=== PATIENT | female | born 1970 | race African-American/Black ===

== ENCOUNTER 2017-11-08 18:23 | Emergency (ER) | payer BC, MEDICAID | END 2017-11-08 19:00 | disposition home or self-care (01) | LOC: E/R 18:23 | DX: H10.9 Unspecified conjunctivitis (principal); J20.9 Acute bronchitis, unspecified; J45.909 Unspecified asthma, uncomplicated | CPT/HCPCS: 99284 ==

== ENCOUNTER 2017-11-24 01:37 | Emergency (ER) | payer BC ==
[2017-11-24 04:28] LABS: ADD MAN DIFF? NO
[2017-11-24 04:30] LABS: BASOPHILS % 0.4 % (0.0-2.0); EOSINOPHILS # 0.5 10^3/ul (0.0-0.5); HEMATOCRIT 41.4 % (37.0-47.0); HEMOGLOBIN 13.8 g/dl (12.0-16.0); LYMPHOCYTES # 1.6 10^3/ul (0.8-2.9); LYMPHOCYTES % 32.3 % (15.0-51.0); MEAN CORPUSCULAR HEMOGLOBIN 31.2 pg (29.0-33.0); MEAN CORPUSCULAR HGB CONC 33.3 g/dl (32.0-37.0); MEAN CORPUSCULAR VOLUME 93.5 fl (82.0-101.0); MEAN PLATELET VOLUME 8.5 fl (7.4-10.4); MONOCYTE # 0.5 10^3/ul (0.3-0.9); MONOCYTES % 10.4 % (0.0-11.0); NEUTROPHIL # 2.3 10^3/ul (1.6-7.5); NEUTROPHILS % 46.7 % (39.0-77.0); PLATELET COUNT 333 10^3/UL (140-415); RED BLOOD COUNT 4.43 10^6/ul (4.20-5.40); RED CELL DISTRIBUTION WIDTH 12.4 % (11.5-14.5)
[2017-11-24 04:50] LABS: ALANINE AMINOTRANSFERASE 42 IU/L (13-69); ALBUMIN/GLOBULIN RATIO 1.11; ALKALINE PHOSPHATASE 117 IU/L (42-121); ANION GAP 17 (8-16); ASPARTATE AMINO TRANSFERASE 44 IU/L (15-46); BILIRUBIN,INDIRECT 0.2 mg/dl (0-1.1); BILIRUBIN,TOTAL 0.2 mg/dl (0.2-1.3); BLOOD UREA NITROGEN 13 mg/dl (7-20); CALCIUM 9.8 mg/dl (8.4-10.2); CARBON DIOXIDE 28 mmol/L (21-31); CHLORIDE 106 mmol/L (97-110); CREATININE 0.94 mg/dl (0.44-1.00); GLUCOSE 99 mg/dl (70-220); POTASSIUM 3.8 mmol/L (3.5-5.1); SODIUM 147 mmol/L (135-144); TOTAL PROTEIN 7.6 g/dl (6.1-8.1)
== END 2017-11-24 06:08 | disposition left against medical advice (07) ==
LOC: FTE 01:37
DX: J20.9 Acute bronchitis, unspecified (principal)
CPT/HCPCS: 80053; 85025; 99284

== ENCOUNTER 2017-11-30 01:07 | Emergency (ER) | payer BC ==
[2017-11-30] MEDS: DIPHENHYDRAMINE 50 MG INJ IV (01:47)
[2017-11-30] MEDS: SOD CHLORIDE 0.9% 1,000 ML IV (01:48)
[2017-11-30] MEDS: METOCLOPRAMIDE 10 MG INJ IV (01:48)
== END 2017-11-30 03:00 | disposition home or self-care (01) ==
LOC: FTE 01:07
DX: G43.909 Migraine, unspecified, not intractable, without status migrainosus (principal)
CPT/HCPCS: 96374; 96375; 99284-25

== ENCOUNTER 2017-12-01 03:54 | Emergency (ER) | payer SELFPAY, BC | END 2017-12-01 06:30 | disposition left against medical advice (07) | LOC: FTE 03:54 | DX: Z53.21 Procedure and treatment not carried out due to patient leaving prior to being seen by health care provider (principal) ==

== ENCOUNTER 2017-12-02 16:51 | Emergency (ER) | payer BC ==
[2017-12-02] MEDS: SOD CHLORIDE 0.9% 500 ML IV (19:33)
[2017-12-02 19:36] LABS: WHITE BLOOD COUNT 3.7 10^3/ul (4.8-10.8)
[2017-12-02 19:36] LABS: BASOPHILS % 0.3 % (0.0-2.0); HEMATOCRIT 34.4 % (37.0-47.0); HEMOGLOBIN 11.8 g/dl (12.0-16.0); LYMPHOCYTES # 1.1 10^3/ul (0.8-2.9); LYMPHOCYTES % 29.6 % (15.0-51.0); MEAN CORPUSCULAR HEMOGLOBIN 32.2 pg (29.0-33.0); MEAN CORPUSCULAR HGB CONC 34.3 g/dl (32.0-37.0); MEAN PLATELET VOLUME 8.3 fl (7.4-10.4); MONOCYTE # 0.4 10^3/ul (0.3-0.9); MONOCYTES % 11.6 % (0.0-11.0); NEUTROPHIL # 2.2 10^3/ul (1.6-7.5); NEUTROPHILS % 58.2 % (39.0-77.0); PLATELET COUNT 251 10^3/UL (140-415); RED BLOOD COUNT 3.66 10^6/ul (4.20-5.40); RED CELL DISTRIBUTION WIDTH 12.6 % (11.5-14.5)
[2017-12-02 19:37] LABS: ADD MAN DIFF? NO
[2017-12-02 20:00] LABS: ANION GAP 15 (8-16); BLOOD UREA NITROGEN 23 mg/dl (7-20); CALCIUM 9.3 mg/dl (8.4-10.2); CARBON DIOXIDE 27 mmol/L (21-31); CHLORIDE 107 mmol/L (97-110); CREATININE 0.92 mg/dl (0.44-1.00); GLUCOSE 116 mg/dl (70-220); POTASSIUM 3.5 mmol/L (3.5-5.1); SODIUM 145 mmol/L (135-144)
[2017-12-02 20:12] LABS: TROPONIN-I < 0.012 ng/ml (0.00-0.12)
== END 2017-12-02 20:50 | disposition home or self-care (01) ==
LOC: FTE 16:51
DX: R42 Dizziness and giddiness (principal); F22 Delusional disorders
CPT/HCPCS: 80048; 84484; 85025; 93005; 99284-25

== ENCOUNTER 2017-12-03 00:32 | Emergency (ER) | payer BC | END 2017-12-03 07:08 | disposition home or self-care (01) | LOC: E/R 00:32 | DX: Z76.5 Malingerer [conscious simulation] (principal) | CPT/HCPCS: 99282 ==

== ENCOUNTER 2017-12-13 01:28 | Emergency (ER) | payer BC ==
[2017-12-13] MEDS ORDERED: NALOXONE (0.4 MG/ML) INJ IM (03:30)
[2017-12-13 04:01] LABS: AMPHETAMINE/METHAMPHETAMINE Negative (NEGATIVE); BARBITURATES Negative (NEGATIVE); BENZODIAZEPINES Negative (NEGATIVE); CANNABINOIDS Negative (NEGATIVE); COCAINE Negative (NEGATIVE); OPIATES Negative (NEGATIVE)
== END 2017-12-13 03:10 | disposition left against medical advice (07) ==
LOC: E/R 01:28
DX: F99 Mental disorder, not otherwise specified (principal)
CPT/HCPCS: 80307; 99283

== ENCOUNTER 2017-12-15 03:53 | Emergency (ER) | payer BC ==
[2017-12-15] MEDS: ONDANSETRON (ODT) 4 MG TAB ODT (06:30)
== END 2017-12-15 07:54 | disposition home or self-care (01) ==
LOC: E/R 03:53
DX: R11.0 Nausea (principal)
CPT/HCPCS: 93005; 99283

== ENCOUNTER 2017-12-24 02:59 | Emergency (ER) | payer BC | END 2017-12-24 03:50 | disposition home or self-care (01) | LOC: E/R 03:50 → FTE 02:59 → E/R 03:50 | DX: R51 Headache (principal) | CPT/HCPCS: 99282 ==

== ENCOUNTER 2017-12-28 23:51 | Emergency (ER) | payer SELFPAY, BC | END 2017-12-29 05:00 | disposition left against medical advice (07) | LOC: E/R 23:51 | DX: Z53.21 Procedure and treatment not carried out due to patient leaving prior to being seen by health care provider (principal) ==

== ENCOUNTER 2018-01-02 23:54 | Emergency (ER) | payer SELFPAY | END 2018-01-03 03:05 | disposition home or self-care (01) | LOC: E/R 23:54 | DX: J06.9 Acute upper respiratory infection, unspecified (principal); R40.2142 Coma scale, eyes open, spontaneous, at arrival to emergency department; R40.2252 Coma scale, best verbal response, oriented, at arrival to emergency department; R40.2362 Coma scale, best motor response, obeys commands, at arrival to emergency department; J45.909 Unspecified asthma, uncomplicated | CPT/HCPCS: 71045; 99283-25 ==

== ENCOUNTER 2018-01-03 22:28 | Emergency (ER) | payer BC | END 2018-01-03 22:59 | disposition home or self-care (01) | LOC: E/R 22:28 | DX: R51 Headache (principal); R40.2142 Coma scale, eyes open, spontaneous, at arrival to emergency department; R40.2252 Coma scale, best verbal response, oriented, at arrival to emergency department; R40.2362 Coma scale, best motor response, obeys commands, at arrival to emergency department | CPT/HCPCS: 99283 ==

== ENCOUNTER 2018-01-13 00:15 | Emergency (ER) | payer BC | END 2018-01-13 00:51 | disposition home or self-care (01) | LOC: E/R 00:15 | DX: R10.9 Unspecified abdominal pain (principal); R40.2252 Coma scale, best verbal response, oriented, at arrival to emergency department; R40.2142 Coma scale, eyes open, spontaneous, at arrival to emergency department; R40.2362 Coma scale, best motor response, obeys commands, at arrival to emergency department | CPT/HCPCS: 99282 ==

== ENCOUNTER 2018-03-30 00:41 | Emergency (ER) | payer BC | END 2018-03-30 03:14 | disposition home or self-care (01) | LOC: FTE 00:41 | DX: Z00.00 Encounter for general adult medical examination without abnormal findings (principal); J45.909 Unspecified asthma, uncomplicated | CPT/HCPCS: 99282 ==

== ENCOUNTER 2018-03-31 02:36 | Emergency (ER) | payer BC ==
[2018-03-31] MEDS: HYDROCODONE/APAP (10/325) TAB PO (07:08)
== END 2018-03-31 06:49 | disposition home or self-care (01) ==
LOC: E/R 02:36
DX: M72.2 Plantar fascial fibromatosis (principal); R40.2252 Coma scale, best verbal response, oriented, at arrival to emergency department; J45.909 Unspecified asthma, uncomplicated
CPT/HCPCS: 99283

== ENCOUNTER 2018-04-01 03:22 | Emergency (ER) | payer BC ==
[2018-04-01] MEDS: HYDROCODONE/APAP (10/325) TAB PO (04:13)
== END 2018-04-01 04:19 | disposition home or self-care (01) ==
LOC: E/R 03:22
DX: H10.31 Unspecified acute conjunctivitis, right eye (principal); L60.0 Ingrowing nail; J45.909 Unspecified asthma, uncomplicated; R40.2142 Coma scale, eyes open, spontaneous, at arrival to emergency department; R40.2362 Coma scale, best motor response, obeys commands, at arrival to emergency department; R40.2252 Coma scale, best verbal response, oriented, at arrival to emergency department
CPT/HCPCS: 99284

== ENCOUNTER 2018-04-09 00:36 | Emergency (ER) | payer SELFPAY, BC | END 2018-04-09 01:28 | disposition left against medical advice (07) | LOC: E/R 00:36 | DX: Z53.21 Procedure and treatment not carried out due to patient leaving prior to being seen by health care provider (principal) ==

== ENCOUNTER 2018-04-11 10:30 | Emergency (ER) | payer BC | END 2018-04-11 12:39 | disposition home or self-care (01) | LOC: E/R 10:30 | DX: B86 Scabies (principal); L29.9 Pruritus, unspecified; J45.909 Unspecified asthma, uncomplicated; R40.2142 Coma scale, eyes open, spontaneous, at arrival to emergency department; R40.2362 Coma scale, best motor response, obeys commands, at arrival to emergency department | CPT/HCPCS: 99283 ==

== ENCOUNTER 2018-04-11 15:08 | Emergency (ER) | payer BC | END 2018-04-11 15:53 | disposition home or self-care (01) | LOC: E/R 15:08 | DX: B86 Scabies (principal); J45.909 Unspecified asthma, uncomplicated; Z76.0 Encounter for issue of repeat prescription | CPT/HCPCS: 99281 ==

== ENCOUNTER 2018-04-11 20:12 | Emergency (ER) | payer BC | END 2018-04-11 20:40 | disposition home or self-care (01) | LOC: E/R 20:12 | DX: M54.9 Dorsalgia, unspecified (principal); J45.909 Unspecified asthma, uncomplicated | CPT/HCPCS: 99283 ==

== ENCOUNTER 2018-04-16 00:11 | Emergency (ER) | payer BC ==
[2018-04-16] MEDS: HYDROCODONE/APAP (10/325) TAB PO (03:07)
== END 2018-04-16 03:10 | disposition home or self-care (01) ==
LOC: E/R 00:11
DX: R51 Headache (principal); R10.9 Unspecified abdominal pain; J45.909 Unspecified asthma, uncomplicated
CPT/HCPCS: 99283

== ENCOUNTER 2018-04-17 21:08 | Emergency (ER) | payer BC ==
[2018-04-17 21:54] LABS: ADD UMIC YES; UR ASCORBIC ACID NEGATIVE (NEGATIVE); UR BILIRUBIN (Dip) NEGATIVE (NEGATIVE); UR BLOOD (Dip) 2+ mg/dL (NEGATIVE); UR CLARITY CLEAR (CLEAR); UR COLOR STRAW (YELLOW); UR GLUCOSE (Dip) NEGATIVE (NEGATIVE); UR KETONES (Dip) NEGATIVE (NEGATIVE); UR LEUKOCYTE ESTERASE (Dip) TRACE Leu/ul (NEGATIVE); UR NITRITE (Dip) NEGATIVE (NEGATIVE); UR RBC 15 /HPF (0-5); UR SPECIFIC GRAVITY (Dip) 1.005 (1.003-1.030); UR TOTAL PROTEIN (Dip) NEGATIVE (NEGATIVE); UR UROBILINOGEN (Dip) NEGATIVE (NEGATIVE); UR WBC 3 /HPF (0-5)
[2018-04-17 22:09] LABS: ADD MAN DIFF? NO
[2018-04-17 22:11] LABS: BASOPHILS % 0.4 % (0.0-2.0); EOSINOPHILS # 0.1 10^3/ul (0.0-0.5); EOSINOPHILS % 2.7 % (0.0-7.0); HEMATOCRIT 35.4 % (37.0-47.0); HEMOGLOBIN 11.9 g/dl (12.0-16.0); LYMPHOCYTES # 1.4 10^3/ul (0.8-2.9); LYMPHOCYTES % 31.8 % (15.0-51.0); MEAN CORPUSCULAR HEMOGLOBIN 31.3 pg (29.0-33.0); MEAN CORPUSCULAR HGB CONC 33.6 g/dl (32.0-37.0); MEAN CORPUSCULAR VOLUME 93.2 fl (82.0-101.0); MEAN PLATELET VOLUME 8.8 fl (7.4-10.4); MONOCYTE # 0.4 10^3/ul (0.3-0.9); MONOCYTES % 8.4 % (0.0-11.0); NEUTROPHIL # 2.5 10^3/ul (1.6-7.5); NEUTROPHILS % 56.5 % (39.0-77.0); PLATELET COUNT 267 10^3/UL (140-415); RED CELL DISTRIBUTION WIDTH 12.2 % (11.5-14.5)
[2018-04-17 22:11] LABS: WHITE BLOOD COUNT 4.5 10^3/ul (4.8-10.8)
[2018-04-17 22:30] LABS: ALANINE AMINOTRANSFERASE 41 IU/L (13-69); ALBUMIN 3.3 g/dl (3.3-4.9); ALBUMIN/GLOBULIN RATIO 1.03; ALKALINE PHOSPHATASE 103 IU/L (42-121); ANION GAP 10 (8-16); ASPARTATE AMINO TRANSFERASE 50 IU/L (15-46); BILIRUBIN,INDIRECT 0.2 mg/dl (0-1.1); BILIRUBIN,TOTAL 0.2 mg/dl (0.2-1.3); BLOOD UREA NITROGEN 13 mg/dl (7-20); CARBON DIOXIDE 29 mmol/L (21-31); CHLORIDE 102 mmol/L (97-110); CREATININE 0.94 mg/dl (0.44-1.00); GLUCOSE 70 mg/dl (70-220); LIPASE 237 U/L (23-300); SODIUM 138 mmol/L (135-144); TOTAL PROTEIN 6.5 g/dl (6.1-8.1)
[2018-04-17] MEDS: POTASSIUM CHLORIDE (SR) 20 MEQ TAB PO (23:07)
[2018-04-17] MEDS: KETOROLAC 15 MG INJ IM (23:43)
== END 2018-04-17 23:14 | disposition home or self-care (01) ==
LOC: E/R 21:08
DX: D64.9 Anemia, unspecified (principal); R31.9 Hematuria, unspecified; E87.6 Hypokalemia; J45.909 Unspecified asthma, uncomplicated
CPT/HCPCS: 80053; 81001; 81025; 83690; 85025; 96372; 99284-25

== ENCOUNTER 2018-04-19 20:41 | Emergency (ER) | payer BC | END 2018-04-19 21:33 | disposition home or self-care (01) | LOC: E/R 21:33 | DX: N39.0 Urinary tract infection, site not specified (principal); J45.909 Unspecified asthma, uncomplicated | CPT/HCPCS: 99283 ==

== ENCOUNTER 2018-04-20 01:55 | Emergency (ER) | payer BC | END 2018-04-20 03:33 | disposition home or self-care (01) | LOC: E/R 01:55 | DX: K62.5 Hemorrhage of anus and rectum (principal); J45.909 Unspecified asthma, uncomplicated | CPT/HCPCS: 99283 ==

== ENCOUNTER 2018-04-21 22:58 | Emergency (ER) | payer BC ==
[2018-04-22] MEDS: ONDANSETRON (ODT) 4 MG TAB ODT (02:37)
[2018-04-22 02:50] LABS: ADD MAN DIFF? NO
[2018-04-22 02:52] LABS: WHITE BLOOD COUNT 4.4 10^3/ul (4.8-10.8)
[2018-04-22 02:52] LABS: BASOPHILS % 0.5 % (0.0-2.0); EOSINOPHILS # 0.2 10^3/ul (0.0-0.5); EOSINOPHILS % 4.4 % (0.0-7.0); HEMATOCRIT 35.9 % (37.0-47.0); LYMPHOCYTES # 1.5 10^3/ul (0.8-2.9); MEAN CORPUSCULAR HEMOGLOBIN 31.1 pg (29.0-33.0); MEAN CORPUSCULAR HGB CONC 33.4 g/dl (32.0-37.0); MEAN PLATELET VOLUME 8.4 fl (7.4-10.4); MONOCYTE # 0.5 10^3/ul (0.3-0.9); MONOCYTES % 11.5 % (0.0-11.0); NEUTROPHIL # 2.2 10^3/ul (1.6-7.5); NEUTROPHILS % 49.4 % (39.0-77.0); PLATELET COUNT 250 10^3/UL (140-415); RED BLOOD COUNT 3.86 10^6/ul (4.20-5.40); RED CELL DISTRIBUTION WIDTH 12.3 % (11.5-14.5)
== END 2018-04-22 03:29 | disposition home or self-care (01) ==
LOC: E/R 22:58
DX: R10.9 Unspecified abdominal pain (principal); J45.909 Unspecified asthma, uncomplicated
CPT/HCPCS: 85025; 99283